=== PATIENT | male | born 1980 | race Caucasian/White ===

== ENCOUNTER 2016-10-03 08:12 | Emergency (ER) | payer OTHER ==
[~2016-10-03] VITALS: Ht 170.2 cm; Wt 92.0 kg
[2016-10-03 08:20] VITALS: TEMP 36.8; O2SAT 97; Ht 170.2 cm; Wt 92.0 kg
[2016-10-03] MEDS ORDERED: SODIUM CHLORIDE 0.9% 1000ML 1,000 ML IV STA (08:26)
[2016-10-03] MEDS ORDERED: ATOR-24 PO (08:52)
[2016-10-03] MEDS ORDERED: NAPR-1169 PO (08:52)
[2016-10-03] MEDS ORDERED: RISP1TAB68 PO (08:52)
[2016-10-03] MEDS ORDERED: ASPI81TA28 PO (08:52)
[2016-10-03] MEDS ORDERED: DIVA500T5 PO (08:52)
[2016-10-03] MEDS ORDERED: FLUO20CA35 PO (08:52)
[2016-10-03] MEDS ORDERED: TAMS0.4C38 PO (08:52)
[2016-10-03] MEDS ORDERED: MIRT15TA2 PO (08:52)
[2016-10-03 08:53] LABS: BASO % 0.2 %; BASO ABS # 0.02 K/uL (0-0.2); COMPLETE YES; EOS % 1.2 %; HEMATOCRIT 39.5 % (42-52); IG% 0.2 %; LYMPH % 17.4 %; LYMPH ABS # 1.93 K/uL (1.2-3.4); MEAN CELL VOLUME 91.4 fL (80-100); MEAN CORPUSCULAR HGB CONC 33.9 g/dl (32-36); MEAN PLATELET VOLUME 9.6 fL (7.4-10.4); MONO % 6.3 %; NEUT % 74.7 %; PLATELET COUNT 253 K/uL (130-400); RED BLOOD COUNT 4.32 M/uL (4.7-6.1); WHITE BLOOD COUNT 11.08 K/uL (4.8-10.8)
[2016-10-03 09:00] LABS: PARTIAL THROMBOPLASTIN RATIO 0.9; PROTHROMBIN TIME (PATIENT) 10.9 SECONDS (9.0-12.0)
[2016-10-03 09:04] LABS: POINT OF CARE PRO-BNP 25 pg/ml (0-450); POINT OF CARE TROPONIN I < 0.030 ng/ml (0-0.045)
[2016-10-03 09:22] LABS: ALT/SGPT 20 U/L (12-78); AST/SGOT 6 U/L (15-37); BLOOD UREA NITROGEN 11 mg/dl (7-18); BUN/CREATININE RATIO 13.9 (10-20); CALCIUM 8.8 mg/dl (8.5-10.1); CARBON DIOXIDE 25 mmol/L (21-32); CHLORIDE 110 mmol/L (98-107); CREATININE 0.76 mg/dl (0.60-1.40); GLUCOSE 93 mg/dl (70-99); POTASSIUM 4.1 mmol/L (3.5-5.1); SODIUM 142 mmol/L (136-145)
[2016-10-03 09:27] LABS: ALKALINE PHOSPHATASE 41 U/L (45-117)
[2016-10-03 09:32] LABS: URINE APPEARANCE CLEAR (CLEAR); URINE BILIRUBIN NEG (NEG); URINE COLOR YELLOW; URINE EPITHELIAL CELL AUTO >30 /lpf (0-5); URINE NITRITE NEG (NEG); URINE SPECIFIC GRAVITY 1.022 (1.000-1.030); UROBILINOGEN NEG (NEG); ZZUR CULT IF INDIC CLEAN CATCH NO
[2016-10-03 09:48] LABS: MANUAL MICROSCOPIC REQUIRED? NO; REVIEW REQ? YES; SULFASALICYLIC ACID POS (NEG)
--- NOTE | 2016-10-03 09:54 | EMERGENCY ROOM VISIT NOTE ---
History First contact with patient: 08:20 Chief Complaint: SYNCOPE (NEAR SYNCOPE) Stated Complaint: NEAR SYNCOPE Nursing Triage Summary: Pt standing in line this AM awaiting medications when he had a near syncopal episiode. Pt denies CP/SOB, but states he feels as if he is "slow." History of Present Illness The patient is a 36 year old male inmate who presents to the Emergency Room with complaints of near syncope. The patient states that he was standing in the medication lying this morning and felt slightly nauseated and sweaty and felt like he was going to pass out. He went over to a railing to hold onto it and someone came and helped him lay down on the ground and he then felt better when he was lying flat. The patient did not completely pass out. The patient denies any dizziness or visual changes. The patient denies any chest pain or shortness of breath. The patient is not diabetic. The patient does not drink a lot of water but states he drinks coffee and juice. Patient denies any vomiting or diarrhea. The patient denies any history of heart disease. Review of Systems 10 system review was performed and was negative unless stated otherwise history of present illness. Past Medical/Surgical History BPH, depression Social History Smoking Status: Current Every Day Smoker Housing Status: other (inmate) Current/Historical Medications Scheduled Aspirin (Aspirin Ec), 81 MG PO HS Atorvastatin (Lipitor), 40 MG PO HS Divalproex Sodium (Depakote Delay Rel), 1,000 MG PO QAM Fluoxetine (Prozac), 20 MG PO QAM Mirtazapine Soltab (Remeron Soltab), 15 MG PO HS Naproxen (Naprosyn), 500 MG PO BID Risperidone (Risperdal), 2 MG PO HS Tamsulosin Hcl (Flomax), 0.4 MG PO HS Allergies Coded Allergies: No Known Allergies (Unverified , 10/03/16) Physical Exam Vital Signs Date Time Temp Pulse Resp B/P (MAP) Pulse Ox O2 Delivery O2 Flow Rate FiO2 10/03/16 08:36 65 118/63 68 112/66 71 117/61 10/03/16 08:32 58 10/03/16 08:20 36.8 65 18 123/52 97 Room Air 10/03/16 08:20 62 118/63 66 112/60 72 117/61 10/03/16 08:20 97 Room Air Physical Exam GENERAL: 36-year-old white male appears in no acute distress. MENTAL Status: Alert and oriented 3. EYES: PERRLA. EOMs intact. NECK: Supple, no lymphadenopathy noted. No carotid bruits noted. LUNGS: Clear auscultation without wheezes rales or rhonchi. CARDIAC: Regular rate and rhythm without murmur. Pulses is full and equal throughout. ABDOMEN: Positive bowel sounds all 4 quadrants. Soft, nontender to palpation without organomegaly or masses. NEURO:Cranial nerves two through 12 intact. Cerebellar function intact with [id number]. Fine motor intact with alternating finger motions. LOWER EXTREMITY is: No cyanosis or edema noted no erythema noted. Medical Decision & Procedures Laboratory Results 10/03/16 08:40 Red Blood Count 4.32, Mean Corpuscular Volume 91.4, Mean Corpuscular Hemoglobin 31.0, Mean Corpuscular Hemoglobin Concent 33.9, Mean Platelet Volume 9.6, Neutrophils (%) (Auto) 74.7, Lymphocytes (%) (Auto) 17.4, Monocytes (%) (Auto) 6.3, Eosinophils (%) (Auto) 1.2, Basophils (%) (Auto) 0.2, Neutrophils # (Auto) 8.28, Lymphocytes # (Auto) 1.93, Monocytes # (Auto) 0.70, Eosinophils # (Auto) 0.13, Basophils # (Auto) 0.02 10/03/16 08:40 Test 10/03/16 08:40 10/03/16 08:44 10/03/16 09:15 White Blood Count 11.08 K/uL (4.8-10.8) Red Blood Count 4.32 M/uL (4.7-6.1) Hemoglobin 13.4 g/dL (14.0-18.0) Hematocrit 39.5 % (42-52) Mean Corpuscular Volume 91.4 fL (80-100) Mean Corpuscular Hemoglobin 31.0 pg (25-34) Mean Corpuscular Hemoglobin Concent 33.9 g/dl (32-36) Platelet Count 253 K/uL (130-400) Mean Platelet Volume 9.6 fL (7.4-10.4) Neutrophils (%) (Auto) 74.7 % Lymphocytes (%) (Auto) 17.4 % Monocytes (%) (Auto) 6.3 % Eosinophils (%) (Auto) 1.2 % Basophils (%) (Auto) 0.2 % Neutrophils # (Auto) 8.28 K/uL (1.4-6.5) Lymphocytes # (Auto) 1.93 K/uL (1.2-3.4) Monocytes # (Auto) 0.70 K/uL (0.11-0.59) Eosinophils # (Auto) 0.13 K/uL (0-0.5) Basophils # (Auto) 0.02 K/uL (0-0.2) RDW Standard Deviation 42.8 fL (36.4-46.3) RDW Coefficient of Variation 12.6 % (11.5-14.5) Immature Granulocyte % (Auto) 0.2 % Immature Granulocyte # (Auto) 0.02 K/uL (0.00-0.02) Prothrombin Time 10.9 SECONDS (9.0-12.0) Prothromb Time International Ratio 1.0 (0.9-1.1) Activated Partial Thromboplast Time 22.8 SECONDS (21.0-31.0) Partial Thromboplastin Ratio 0.9 Anion Gap 7.0 mmol/L (3-11) Est Creatinine Clear Calc Drug Dose 142.5 ml/min Estimated GFR () 134.1 Estimated GFR (Non- 115.7 BUN/Creatinine Ratio 13.9 (10-20) Calcium Level 8.8 mg/dl (8.5-10.1) Total Bilirubin 0.6 mg/dl (0.2-1) Direct Bilirubin 0.1 mg/dl (0-0.2) Aspartate Amino Transf (AST/SGOT) 6 U/L (15-37) Alanine Aminotransferase (ALT/SGPT) 20 U/L (12-78) Alkaline Phosphatase 41 U/L (45-117) Total Creatine Kinase 66 U/L (39-308) Creatine Kinase MB < 0.5 ng/ml (0.5-3.6) Creatine Kinase MB Ratio (0-3.0) Total Protein 6.4 gm/dl (6.4-8.2) Albumin 3.8 gm/dl (3.4-5.0) Lipase 80 U/L (73-393) Bedside Troponin I < 0.030 ng/ml (0-0.045) OU-Lyl-M-Type Natriuretic Peptide 25 pg/ml (0-450) Urine Color YELLOW Urine Appearance CLEAR (CLEAR) Urine pH 8.0 (4.5-7.5) Urine Specific [place] 1.022 (1.000-1.030) Urine Protein 2+ (NEG) Urine Glucose (UA) NEG (NEG) Urine Ketones NEG (NEG) Urine Occult Blood NEG (NEG) Urine Nitrite NEG (NEG) Urine Bilirubin NEG (NEG) Urine Urobilinogen NEG (NEG) Urine Leukocyte Esterase NEG (NEG) Urine WBC (Auto) 1-5 /hpf (0-5) Urine RBC (Auto) 0-4 /hpf (0-4) Urine Hyaline Casts (Auto) 10-30 /lpf (0-5) Urine Epithelial Cells (Auto) >30 /lpf (0-5) Urine Bacteria (Auto) NEG (NEG) Urine Renal Epithelial Cells /lpf (0-5) ECG Indication: other (near syncope) Rhythm: normal sinus Findings: no acute ischemic change Comparison ECG Date: no prior available ED Course The patient was evaluated. The patient was placed on a monitor and continuous pulse ox. EKG was ordered and interpreted as above without any acute ST changes. CBC and differential, renal profile, coags, CK-MB, troponin, BNP was ordered. Urinalysis was ordered. [facility] and he already received 1 L of normal saline in route. The patient was reevaluated was feeling fine. Labs are reviewed and were unremarkable. Urinalysis was negative. The patient's case was discussed with Dr. Medel who agreed with treatment plan. The patient was discharged home in stable condition. Medical Decision Differential diagnosis include cardiac arrhythmia, acute [place], dehydration, vasovagal syncope, orthostatic hypotension Impression Primary Impression: Near syncope Departure Information Dispostion Home / Self-Care Condition GOOD Referrals Flex DE ANDA (PCP) Forms HOME CARE DOCUMENTATION FORM, IMPORTANT VISIT INFORMATION Patient Instructions ED Near Syncope [facility] Additional Instructions Stay well-hydrated with water. Do not go for extended period time without fluid. Follow-up with physician in 2 days for recheck. Any worsening of symptoms, return to ER.
[2016-10-03 10:16] VITALS: BP 120/68; PULSE 68; O2SAT 98
== END 2016-10-03 10:16 | disposition home or self-care (01) ==
LOC: EDBD 08:12 → C.EDA 08:14
DX: R55 Syncope and collapse (principal); N40.0 Benign prostatic hyperplasia without lower urinary tract symptoms; F32.9 Major depressive disorder, single episode, unspecified; F17.210 Nicotine dependence, cigarettes, uncomplicated; Z79.82 Long term (current) use of aspirin; Z79.899 Other long term (current) drug therapy